=== PATIENT | female | born 2000 | race Caucasian/White ===

== ENCOUNTER 2022-06-09 11:16 | Emergency (ER) | payer OTHER, SELFPAY ==
[2022-06-09 11:18] VITALS: BP 131/73; PULSE 100; RESP 18; TEMP 36.8; O2SAT 100
--- NOTE | 2022-06-09 12:44 | ED.URI ---
HPI - URI/Sore Throat General Chief Complaint: Upper Respiratory Infection Stated Complaint: Sore Throat Time Seen by Provider: 06/09/22 12:44 Source: patient, RN notes reviewed and old records reviewed Mode of arrival: ambulatory Limitations: no limitations History of Present Illness HPI Narrative: 21-year-old female who presents to [facility] with complaints of sore throat which she rates 10/04 stating it started on Tuesday with complaints of cough and expectoration of green phlegm with fever of 101F Tuesday. Patient reports that she. has history of asthma using nebulizer and inhaler as prescribed for her cough. Patient states that she has been taking DayQuil and NyQuil for her symptoms also. Patient reports no known ill contacts. MD elicited complaint: cough and sore throat Pertinent past history: asthma Onset (ago): day(s) (day 3 of symptoms) Pain scale (0-10): 7 Able to tolerate fluids by mouth: Yes Treatments prior to arrival: other (DayQuil,NyQuil and albuterol inhaler) Related Data Home Medications Medication Instructions Recorded Confirmed amitriptyline 25 mg tablet 25 mg PO QHS 07/16/21 06/09/22 albuterol sulfate 1.25 mg/3 mL 1.25 mg inhalation Q4H PRN 06/09/22 06/09/22 solution for nebulization Shortness Of Breath albuterol sulfate 90 mcg/actuation 2 puff inhalation Q4-6H PRN 06/09/22 06/09/22 aerosol inhaler Shortness Of Breath fluticasone propionate 44 2 puff inhalation BID 06/09/22 06/09/22 mcg/actuation HFA aerosol inhaler (Flovent HFA) norelgestromin 150 mcg-e.estradiol 1 patch transdermal MONTHLY 06/09/22 06/09/22 35 mcg/24 hr weekly transderm patch (Zafemy) Allergies Allergy/AdvReac Type Severity Reaction Status Date / Time No Known Allergies Allergy Verified 06/09/22 12:24 Review of Systems Review of Systems: CONSTITUTIONAL:Reports malaise, chills, sweats, or fever. EYES: Denies visual changes, redness, or discharge. ENT: Reports rhinorrhea, congestion, sinus pain,no otalgia positive for sore throat. CARDIOVASCULAR: Denies chest pain, palpitations, or edema. RESPIRATORY: Reports productive cough.? Denies dyspnea. GASTROINTESTINAL: Denies abdominal pain, nausea, vomiting, diarrhea SKIN: Denies rash or itching. MUSCULOSKELETAL: Denies myalgia. NEUROLOGIC: Denies headache. All systems reviewed & are unremarkable except as noted in HPI and below PMFSH Past Medical History Medical History Anxiety Asthma Surgical History Surgical History History of tonsillectomy and adenoidectomy Social History Social History Smoking status: Never smoker Alcohol intake: never Substance use: current Substance use type: marijuana Living arrangements: with family Occupation/Education: occupation Additional occupation/education comments: Day care worker Gender identity (if verbalized by the patient): Female Sexual Orientation (if Verbalized by the Patient): Straight or Heterosexual Comments At time of signature, agree with nursing past medical, surgical, social and family history. There is no relevant family history pertinent to the presenting complaint Exam Narrative: GENERAL: Well-appearing, well-nourished, and in no acute distress. HEAD: Normocephalic EYES: PERRLA, conjunctivae clear ENT: Nares clear, turbinates edematous and erythematous, clear discharge. Mucous membranes moist. TM pearly [place] with dull light reflex bilaterally; no tragal tenderness. Oropharynx erythematous without lesions. Tonsils not present and throat without exudate, no drooling, no hoarseness, no trismus, uvula midline.post nasal drainage NECK: Supple. No lymphadenopathy CHEST: Clear to auscultation, breath sounds equal. No wheezing, rhonchi, rales, or stridor. No respiratory distress, speaks in full sentences.productive
== END 2022-06-09 13:00 | disposition home or self-care (01) ==
PROVIDERS: Emergency Provider Registered Nurse; PCP Nurse Practitioner Family
DX: J02.9 Acute pharyngitis, unspecified (principal); J45.909 Unspecified asthma, uncomplicated
CPT/HCPCS: 87081; 87880; 99213; G0463